=== PATIENT | female | born 1960 | race Caucasian/White ===

== ENCOUNTER → 2017-09-11 | Outpatient (CLI) | payer OTHER ==
[~2017-09-11] MED LIST: FLUO20CA38 PO; LIALDA; MESA400T9 PO; ZOLP5TAB PO
--- NOTE | 2017-09-11 12:30 | RADRPT ---
PROCEDURE: Left knee radiographs. CLINICAL INDICATION: Left knee pain. TECHNIQUE: Three views. Weight bearing. Frontal, lateral, and patellar view. COMPARISON: No prior studies are available for comparison. FINDINGS: There is no fracture or dislocation. The soft tissues are normal. There are degenerative changes with osteophytes arising from all 3 joint compartment margins. There is patellofemoral joint compartment narrowing. There is no lytic or blastic lesion. There is no radiopaque foreign body. IMPRESSION: 1. Moderate degenerative changes of the left knee. 2. Otherwise unremarkable study. RPTAT: QQ .Ziyad Fitzgerald MD, MD Date Time Electronically viewed and signed by .Ziyad Fitzgerald MD, on 09/11/2017 12:29 .R/
--- NOTE | 2017-09-12 04:00 | HKNOTE ---
DATE OF SERVICE: 09/11/2017 MAIN COMPLAINT: Pain in the left knee. HISTORY OF MAIN COMPLAINT: A 57-year-old female who has previously been seen by me for arthritis in the left knee. She had an operative arthroscopy in May. She was found to have extremely severe d egenerative osteoarthritis of the patellofemoral joint. About a month ago she had increasing pain in the area of the pes bursa. Pain was moderate and the a leah was swollen, but that seems to have settled down. She comes in for a "checkup of my knee." PRESENT COMPLAINTS: The knee does not swell, lock or feel unstable. She can walk "10 miles if I landrum ve to." She does not use a walking aid. She takes an occasional Aleve and she also applies ice to the knee if needed. PHYSICAL EXAMINATION: GENERAL: A fit looking 57-year-old female. VITAL SIGNS: Height 5 feet 1, weight 245 pounds. Blood pressure 115/70, temperature 98.4. HIP EXAMINATION: Both hips have a full range of motion without pain. LEFT KNEE: The left knee shows normal alignment. Active and passive extension is 0 degrees. Active and passive flexion is 135 degrees. The medial and lateral collateral ligaments and cruciate ligamen ts are intact. Flaco test is negative. There is no tenderness, scarring, or cysts. The patella tra cks normally. There is no tenderness on the articular surface of the patella or in the patellar groo ve. The Q angle is normal. 1+ effusion and severe crepitus under the patella. IMAGING: Plain x-rays of the left knee were reviewed (3 views). Knee showed well maintained medial and lateral joint spaces, but exceedingly severe narrowing and secondary arthritic changes in the p atellofemoral joint. DIAGNOSIS: Patellofemoral arthritis of the left knee. MANAGEMENT: Currently the patient is not in need of any special treatment. We discussed the fact t hat her arthritis is almost totally confined to the patellofemoral joint. The outcomes of patellofe moral joint surgery are not currently very good. She is advised that sooner or later that is probab ly what she is going to need to have done. I would think that she probably has 2 years or so before she will really have sufficient pain to consider a patellofemoral replacement and by then possibly a good joint will have been developed. She will be seen again as necessary for further evaluation and treatment. Dictated By: JANIE NICHOLSON/CHESTER Conf#: [id number] DID#: [id number]
== END | disposition home or self-care (01) ==
LOC: HKI 10:38
DX: M13.862 Other specified arthritis, left knee (principal)
CPT/HCPCS: G0463

== ENCOUNTER → 2018-12-23 | Outpatient (CLI) | payer BC ==
--- NOTE | 2018-12-23 20:33 | HKNOTE ---
DATE OF SERVICE: 12/23/2018 CHIEF COMPLAINT: Left knee pain. HISTORY OF PRESENT ILLNESS: The patient is a 58-year-old healthy female who underwent previous left knee arthroscopic meniscectomy for degenerative meniscal tear approximately two years ago, who now pr esents with a few day history of acute onset of left knee pain. The pain is located in the anterolat eral part of the knee and is worse with standing up and with activity. She notices that she gets twi nges of pain that are very severe. She has yet to try any physical therapy, oral anti-inflammatory m edication or injections, or any other measures to relieve the pain. She does not note any locking or popping, but does feel a catching sensation. She denies any other constitutional symptoms. PAST MEDICAL HISTORY: See medical record. REVIEW OF SYSTEMS: Negative as per above. PHYSICAL EXAMINATION: GENERAL: Alert and oriented, in no acute distress. HEENT: Normocephalic, atraumatic. LEFT LOWER EXTREMITY: On inspection, well-aligned knee. The skin is intact with no erythema, edema or discharge. Palpation: There is tenderness to palpation at the anterolateral knee with a positive patellar grind test, negative Kane's, and no joint line tenderness. Range of motion 0 to 135 de grees active and passive with mild crepitus. Neurovascularly intact. IMAGING STUDIES: On 12/23/2018, left knee x-rays show well preserved medial and lateral compartments , but significant joint space narrowing, subchondral sclerosis, and osteophyte formation in the coon lofemoral compartment. ASSESSMENT: Left knee patellofemoral arthritis. PLAN: 1. Conservative treatment for as long as possible. 2. Physical therapy for quadriceps and gluteus melissa strengthening and arthritis modalities. 3. Oral anti-inflammatory medication for the pain. The patient prefers Naprosyn. 4. The patient was offered the option of a corticosteroid injection, but wishes to defer at this paras e. 5. Return to clinic in three months to reevaluate or sooner if pain becomes severe or problems devel op. Dictated By: CHASE PARDO/NTS Conf#: [id number] DID#: [id number]
--- NOTE | 2018-12-24 16:24 | RADRPT ---
PROCEDURE: Left knee x-ray CLINICAL INDICATION: Pain TECHNIQUE: 3 views of the left knee were obtained. COMPARISON: KNEE 09/11/2017; PRAKASH KNEE 04/18/2015 FINDINGS: No acute fracture or dislocation. There is moderate tricompartmental arthrosis, most pronounced at th e patellofemoral compartment with joint space narrowing marginal osteophyte formation. No significant joint effusion. Diffuse osteopenia. IMPRESSION: Moderate degenerate joint disease of the knee, most pronounced at the patellofemoral compartment wher e there has been mild interval progression of degenerative changes. RPTAT:AAJJ Physician Surendra Date Time Electronically viewed and signed by Danyell Green Physician on 12/24/2018 16:24 RF/
== END | disposition home or self-care (01) ==
LOC: HKI 10:36
PROVIDERS: ATTEND Orthopaedic Surgery
DX: M17.12 Unilateral primary osteoarthritis, left knee (principal)
CPT/HCPCS: 73562; G0463